=== PATIENT | male | born 1995 | race Caucasian/White ===

== ENCOUNTER 2020-02-09 17:02 | Emergency (ER) | payer MEDICAID ==
[~2020-02-09] VITALS: Ht 190.5 cm; Wt 118.2 kg
[2020-02-09 17:45] VITALS: BP 155/93
[2020-02-09] MEDS ORDERED: BACTROBAN TOP (18:14)
[2020-02-09] MEDS ORDERED: BACTRIM DS1 TAB PO (18:14)
== END 2020-02-09 19:06 | disposition home or self-care (01) | DRG 603 ==
LOC: ED 17:02
DX: L03.116 Cellulitis of left lower limb (principal); Z86.14 Personal history of Methicillin resistant Staphylococcus aureus infection

== ENCOUNTER 2020-04-20 14:32 | Emergency (ER) | payer BC, MEDICAID ==
[~2020-04-20] VITALS: Ht 190.5 cm; Wt 122.7 kg
[~2020-04-20 14:32] MED LIST: BACTRIM DS1 TAB PO; BACTROBAN TOP
[2020-04-20 16:35] VITALS: BP 152/86
[2020-04-20] MEDS ORDERED: CYCLOBENZAPR5 MG PO (16:36)
== END 2020-04-20 16:30 | disposition home or self-care (01) | DRG 552 ==
LOC: ED 14:32
DX: M54.6 Pain in thoracic spine (principal); F17.200 Nicotine dependence, unspecified, uncomplicated